=== PATIENT | female | born 1960 | race Caucasian/White ===

== ENCOUNTER 2017-07-06 13:32 | Emergency (ER) | payer BC ==
[~2017-07-06] VITALS: Ht 154.9 cm; Wt 81.6 kg
[2017-07-06 13:59] VITALS: Ht 154.9 cm; Wt 81.6 kg
[2017-07-06 16:15] VITALS: BP 150/60
== END 2017-07-06 16:15 | disposition home or self-care (01) ==
LOC: ED 13:32
DX: J11.1 Influenza due to unidentified influenza virus with other respiratory manifestations (principal); R05 Cough; R06.02 Shortness of breath; I10 Essential (primary) hypertension; Z90.710 Acquired absence of both cervix and uterus; Z88.0 Allergy status to penicillin; Z88.5 Allergy status to narcotic agent
CPT/HCPCS: J1885